=== PATIENT | male | born 1975 | race Caucasian/White ===

== ENCOUNTER 2019-11-29 13:50 | Emergency (ER) | payer BC ==
[~2019-11-29] VITALS: Ht 175.3 cm; Wt 81.7 kg
[~2019-11-29 13:50] MED LIST: FLOMAX0.4 MG PO; HYDROCODONE-AP1 EAC6 PO; IBUPROFEN 800800 M1 PO; NORCO 5-325 TA1 EAC1 PO; PERCOCET 5-3251 EACH PO; ZOFRAN ODT4 MG PO
[2019-11-29 15:26] VITALS: BP 125/75
== END 2019-11-29 15:27 | disposition home or self-care (01) ==
LOC: M.ERS 13:50
DX: M54.5 Low back pain (principal); M25.512 Pain in left shoulder; Z87.442 Personal history of urinary calculi; Z85.828 Personal history of other malignant neoplasm of skin; V29.9XXA Motorcycle rider (driver) (passenger) injured in unspecified traffic accident, initial encounter; Y93.89 Activity, other specified; Y92.89 Other specified places as the place of occurrence of the external cause; Y99.8 Other external cause status

== ENCOUNTER 2021-01-28 01:41 | Emergency (ER) | payer BC ==
[~2021-01-28] VITALS: Ht 175.3 cm; Wt 81.7 kg
[2021-01-28 01:49] VITALS: BP 150/90
[2021-01-28 03:58] LABS: ABSOLUTE EOSINOPHILS 0.1 thou/uL (0.0-0.7); ABSOLUTE LYMPHOCYTES 5.2 thou/uL (0.8-5.3); ABSOLUTE MONOCYTES 0.7 thou/uL (0.0-1.2); ABSOLUTE NEUTROPHILS 4.1 thou/uL (1.6-8.1); BASOPHILS 0.4 %; EOSINOPHILS 1.1 %; HEMATOCRIT 45.1 % (42.0-52.0); HEMOGLOBIN 15.2 gm/dL (14.0-18.0); LYMPHOCYTES 51.2 %; MCH 30.1 pg (26.0-34.0); MCHC 33.8 g/dL (28.0-37.0); MCV 89.1 fL (80.0-100.0); MONOCYTES 7.3 %; MPV 8.3 fl. (7.2-11.1); NUCLEATED RBCS 0 /100WBC; PLATELET COUNT* 255 thou/uL (150-400); RBC 5.05 mil/uL (4.50-6.00); RDW-CV 13.4 % (10.5-14.5); WBC 10.2 thou/uL (4.0-11.0)
[2021-01-28 04:01] LABS: CALCIUM 8.6 mg/dL (8.5-10.1); CREATININE 1.6 mg/dL (0.6-1.3); POTASSIUM 3.6 mmol/L (3.5-5.1)
[2021-01-28] MEDS ORDERED: HYDROCODON-ACE1 EAC8 PO ×2 (06:08→06:09)
[2021-01-28] MEDS ORDERED: FLOMAX0.4 MG PO ×2 (06:08→06:09)
[2021-01-28] MEDS ORDERED: ZOFRAN ODT4 MG PO ×2 (06:08→06:09)
[2021-01-28 06:26] VITALS: BP 132/74
== END 2021-01-28 06:27 | disposition home or self-care (01) ==
LOC: M.ERS 01:41 → M.TBA-ER 03:32 → M.ERS 03:32
PROVIDERS: Emergency Medicine
DX: N20.1 Calculus of ureter (principal); Z85.828 Personal history of other malignant neoplasm of skin

== ENCOUNTER 2021-02-03 01:35 | Emergency (ER) | payer BC ==
[~2021-02-03] VITALS: Ht 175.3 cm; Wt 81.7 kg
[~2021-02-03 01:35] MED LIST changes: +HYDROCODON-ACE1 EAC8 PO
[2021-02-03 02:07] LABS: ABSOLUTE BASOPHILS 0.1 thou/uL (0.0-0.2); ABSOLUTE EOSINOPHILS 0.1 thou/uL (0.0-0.7); ABSOLUTE LYMPHOCYTES 2.1 thou/uL (0.8-5.3); ABSOLUTE MONOCYTES 0.9 thou/uL (0.0-1.2); ABSOLUTE NEUTROPHILS 8.7 thou/uL (1.6-8.1); BASOPHILS 0.5 %; EOSINOPHILS 0.9 %; HEMATOCRIT 42.5 % (42.0-52.0); HEMOGLOBIN 14.3 gm/dL (14.0-18.0); LYMPHOCYTES 17.9 %; MCH 29.3 pg (26.0-34.0); MCHC 33.5 g/dL (28.0-37.0); MCV 87.5 fL (80.0-100.0); MONOCYTES 7.8 %; MPV 7.5 fl. (7.2-11.1); NUCLEATED RBCS 0 /100WBC; PLATELET COUNT* 225 thou/uL (150-400); POLYS 72.9 %; RBC 4.86 mil/uL (4.50-6.00)
[2021-02-03 02:16] LABS: CALCIUM 8.7 mg/dL (8.5-10.1); CREATININE 1.8 mg/dL (0.6-1.3); POTASSIUM 3.9 mmol/L (3.5-5.1)
[2021-02-03] MEDS ORDERED: HYDROCODON-ACE1 EAC8 PO (04:25)
[2021-02-03 05:55] VITALS: BP 128/72
== END 2021-02-03 05:59 | disposition home or self-care (01) ==
LOC: M.ERS 01:35
PROVIDERS: Emergency Medicine
DX: N20.0 Calculus of kidney (principal)